=== PATIENT | male | born 2000 | race Two or more races ===

== ENCOUNTER 2025-08-06 18:04 | Inpatient (IN) | payer OTHER ==
[~2025-08-06] VITALS: Ht 180.3 cm; Wt 52.6 kg
[2025-08-06 19:38] LABS: COVID AG,FIA SOURCE NASAL SWAB
[2025-08-06 19:43] LABS: PLATELET COUNT (AUTO) 144 K/uL (150-450); RED BLOOD CELL COUNT(AUTO) 4.80 MIL/uL (4.50-5.90); RED CELL DISTRIBUTION WIDTH 12.9 % (11.5-14.5); WHITE BLOOD COUNT (AUTO) 6.1 K/uL (4.5-11.0)
[2025-08-06 19:57] LABS: CALCIUM, TOTAL 8.7 mg/dL (8.8-10.5); CREATININE 0.84 mg/dL (0.60-1.30); GLOMERULAR FILTR. RATE CALC > 60 mL/min (>60); GLUCOSE,RANDOM 84 mg/dL (70-110); SODIUM SERUM 142 mmol/L (136-145); UREA NITROGEN, BLOOD 6 mg/dL (7-18)
[2025-08-06 19:58] LABS: INFLUENZA TYPE A NEGATIVE FOR TYPE A (NEGATIVE); INFLUENZA TYPE B NEGATIVE FOR TYPE B (NEGATIVE)
[2025-08-06 19:59] LABS: SARS-COV2 (COVID) ANTIGEN,FIA Negative (Negative)
[2025-08-06] MEDS ORDERED: ZOLPIDEM TARTRATE 5 MG TABLET PO PRN (20:00)
[2025-08-06] MEDS ORDERED: MAGNESIUM HYDROXIDE SUSPENSION 30 ML UDCUP PO PRN (20:00)
[2025-08-06 20:01] LABS: ASPARTATE AMINOTRANSFERASE 41.0 U/L (15-37); TOTAL PROTEIN, SERUM 6.5 g/dL (6.4-8.2)
[2025-08-06 22:40] VITALS: BP 127/85; PULSE 51; RESP 20; TEMP 98.2; O2SAT 100
[2025-08-07] MEDS ORDERED: SODIUM CHLORIDE 3% 15 ML NEB SOLUTION NEB ONE (00:26)
[2025-08-07 05:11] VITALS: BP 108/66; PULSE 62; RESP 18; TEMP 97.5; O2SAT 100
[2025-08-07 08:00] VITALS: BP 106/75; PULSE 54; RESP 18; TEMP 97.7; O2SAT 100
[2025-08-07 19:30] VITALS: PULSE 68; RESP 18; O2SAT 100
[2025-08-07 20:51] VITALS: BP 112/64; PULSE 87; RESP 18; TEMP 98.1; O2SAT 100
[2025-08-07 23:47] LABS: MTB PCR w/Rif. Resistance-SPUT NOT DETECTED (Not Detectd)
[2025-08-08 03:29] VITALS: BP 111/63; PULSE 72; RESP 18; TEMP 97.3; O2SAT 100
[2025-08-08 04:36] VITALS: PULSE 64; RESP 16; O2SAT 100
[2025-08-08 08:50] VITALS: BP 114/75; PULSE 60; RESP 18; TEMP 97.5; O2SAT 100
[2025-08-08 09:09] LABS: MTB PCR w/Rif. Resistance-SPUT NOT DETECTED (Not Detectd)
[2025-08-08] MEDS: ISONIAZID 300 MG TABLET PO SCH (19:15)
[2025-08-08] MEDS: ETHAMBUTOL HCL 400 MG TABLET PO SCH (19:15)
[2025-08-08] MEDS: PYRIDOXINE HCL 50 MG TABLET PO SCH (19:15)
[2025-08-08 20:04] VITALS: BP 109/62; PULSE 61; RESP 18; TEMP 97.7; O2SAT 100
[2025-08-09 06:31] VITALS: BP 112/71; PULSE 73; RESP 18; TEMP 97.9; O2SAT 98
[2025-08-09 07:38] VITALS: BP 120/73; PULSE 57; RESP 18; TEMP 97.5; O2SAT 98
[2025-08-09 20:00] VITALS: BP 123/64; PULSE 64; RESP 18; TEMP 97.7; O2SAT 98
[2025-08-10 04:51] VITALS: BP 115/66; PULSE 63; RESP 18; TEMP 97.7; O2SAT 100
[2025-08-10 09:00] VITALS: BP 114/61; PULSE 60; RESP 19; TEMP 97.5; O2SAT 98
[2025-08-10 17:34] LABS: APPEARANCE,URINE HAZY (CLEAR); GLUCOSE, URINE (UA) NEGATIVE (NEGATIVE); LEUKOCYTE ESTERASE ,URINE NEGATIVE (NEGATIVE); NITRATE,URINE NEGATIVE (NEGATIVE); OCCULT BLOOD,URINE NEGATIVE (NEGATIVE); SPECIFIC GRAVITIY, URINE 1.013 (1.003-1.030)
[2025-08-10 21:21] VITALS: BP 112/61; PULSE 65; RESP 20; TEMP 98.2; O2SAT 99
[2025-08-11 04:45] VITALS: BP 96/67; PULSE 62; RESP 18; TEMP 97.9; O2SAT 99
[2025-08-11 08:00] VITALS: BP 114/77; PULSE 56; RESP 19; TEMP 97.3; O2SAT 100
[2025-08-11 19:26] VITALS: BP 114/62; PULSE 66; RESP 18; TEMP 97.9; O2SAT 98
[2025-08-11 20:07] LABS: QUANTIFERON+, Nil Value 0.05 IU/mL; QUANTIFERON+,Mitogen Value >10.00 IU/mL; QUANTIFERON+,TB1 Antigen Value 2.31 IU/mL; QUANTIFERON+,TB2 Antigen Value 2.37 IU/mL; QUANTIFERON, TB GOLD PLUS Positive (Negative)
[2025-08-12 04:28] VITALS: BP 120/71; PULSE 61; RESP 18; TEMP 98.1; O2SAT 99
[2025-08-12 09:11] VITALS: BP 117/69; PULSE 66; RESP 18; TEMP 98.2; O2SAT 99
[2025-08-12 20:00] VITALS: BP 119/65; PULSE 67; RESP 18; TEMP 98.1; O2SAT 99
[2025-08-13 04:00] VITALS: BP 123/73; PULSE 61; RESP 18; TEMP 98.4; O2SAT 97
[2025-08-13 08:37] VITALS: BP 116/66; PULSE 60; RESP 18; TEMP 98.2; O2SAT 100
[2025-08-13 12:30] LABS: PLATELET COUNT (AUTO) 201 K/uL (150-450); RED BLOOD CELL COUNT(AUTO) 5.23 MIL/uL (4.50-5.90); RED CELL DISTRIBUTION WIDTH 13.4 % (11.5-14.5); WHITE BLOOD COUNT (AUTO) 5.7 K/uL (4.5-11.0)
[2025-08-13 12:47] LABS: CALCIUM, TOTAL 8.7 mg/dL (8.8-10.5); CREATININE 0.66 mg/dL (0.60-1.30); GLOMERULAR FILTR. RATE CALC > 60 mL/min (>60); GLUCOSE,RANDOM 96 mg/dL (70-110); SODIUM SERUM 138 mmol/L (136-145); UREA NITROGEN, BLOOD 12 mg/dL (7-18)
[2025-08-13 12:51] LABS: ASPARTATE AMINOTRANSFERASE 73 U/L (15-37); TOTAL PROTEIN, SERUM 6.5 g/dL (6.4-8.2)
[2025-08-13] MEDS ORDERED: ETHA400T25 PO (14:42)
[2025-08-13] MEDS ORDERED: PYRI-9 PO (14:51)
[2025-08-13] MEDS ORDERED: ISON300T89 PO (14:51)
[2025-08-13] MEDS ORDERED: MAGN-169 PO (14:53)
[2025-08-13] MEDS ORDERED: ACET-2247 PO (14:53)
[2025-08-13] MEDS ORDERED: RIFA300C63 PO (14:54)
[2025-08-13 19:25] VITALS: BP 123/67; PULSE 83; RESP 18; TEMP 98.1; O2SAT 100
[2025-08-14 04:05] VITALS: BP 111/73; PULSE 64; RESP 18; TEMP 98.1; O2SAT 96
[2025-08-14 06:55] LABS: ASPARTATE AMINOTRANSFERASE 71 U/L (15-37); CALCIUM, TOTAL 8.6 mg/dL (8.8-10.5); CREATININE 0.59 mg/dL (0.60-1.30); GLOMERULAR FILTR. RATE CALC > 60 mL/min (>60); GLUCOSE,RANDOM 85 mg/dL (70-110); SODIUM SERUM 138 mmol/L (136-145); TOTAL PROTEIN, SERUM 6.2 g/dL (6.4-8.2); UREA NITROGEN, BLOOD 10 mg/dL (7-18)
[2025-08-14 07:49] VITALS: BP 114/64; PULSE 64; RESP 18; TEMP 97.9; O2SAT 100
[2025-08-14 20:40] VITALS: BP 117/63; PULSE 63; RESP 18; TEMP 98.2; O2SAT 100
[2025-08-15 06:25] LABS: PLATELET COUNT (AUTO) 189 K/uL (150-450); RED BLOOD CELL COUNT(AUTO) 4.94 MIL/uL (4.50-5.90); RED CELL DISTRIBUTION WIDTH 13.5 % (11.5-14.5); WHITE BLOOD COUNT (AUTO) 7.0 K/uL (4.5-11.0)
[2025-08-15 06:43] LABS: ASPARTATE AMINOTRANSFERASE 99 U/L (15-37); CALCIUM, TOTAL 8.5 mg/dL (8.8-10.5); CREATININE 0.65 mg/dL (0.60-1.30); GLOMERULAR FILTR. RATE CALC > 60 mL/min (>60); GLUCOSE,RANDOM 87 mg/dL (70-110); SODIUM SERUM 140 mmol/L (136-145); TOTAL PROTEIN, SERUM 6.1 g/dL (6.4-8.2); UREA NITROGEN, BLOOD 13 mg/dL (7-18)
[2025-08-15 08:07] VITALS: BP 118/68; PULSE 60; RESP 18; TEMP 97.9; O2SAT 99
[2025-08-15 19:56] VITALS: BP 117/78; PULSE 77; RESP 18; TEMP 97.5; O2SAT 98
[2025-08-16 05:55] VITALS: BP 104/62; PULSE 60; RESP 18; TEMP 97.7; O2SAT 99
[2025-08-16 07:01] LABS: PLATELET COUNT (AUTO) 186 K/uL (150-450); RED BLOOD CELL COUNT(AUTO) 4.83 MIL/uL (4.50-5.90); RED CELL DISTRIBUTION WIDTH 13.2 % (11.5-14.5); WHITE BLOOD COUNT (AUTO) 5.4 K/uL (4.5-11.0)
[2025-08-16 07:13] LABS: ASPARTATE AMINOTRANSFERASE 65 U/L (15-37); CALCIUM, TOTAL 8.8 mg/dL (8.8-10.5); CREATININE 0.61 mg/dL (0.60-1.30); GLOMERULAR FILTR. RATE CALC > 60 mL/min (>60); GLUCOSE,RANDOM 84 mg/dL (70-110); SODIUM SERUM 140 mmol/L (136-145); TOTAL PROTEIN, SERUM 6.1 g/dL (6.4-8.2); UREA NITROGEN, BLOOD 11 mg/dL (7-18)
[2025-08-16 07:33] LABS: ASPARTATE AMINOTRANSFERASE 63.0 U/L (15-37); TOTAL PROTEIN, SERUM 6.1 g/dL (6.4-8.2)
[2025-08-16 07:57] VITALS: BP 111/73; RESP 18; O2SAT 99
[2025-08-16 20:00] VITALS: BP 122/66; PULSE 65; RESP 18; TEMP 98.6; O2SAT 99
[2025-08-17 04:00] VITALS: BP 111/66; PULSE 61; RESP 16; TEMP 97.7; O2SAT 100
[2025-08-17 07:15] LABS: PLATELET COUNT (AUTO) 186 K/uL (150-450); RED BLOOD CELL COUNT(AUTO) 4.79 MIL/uL (4.50-5.90); RED CELL DISTRIBUTION WIDTH 13.2 % (11.5-14.5); WHITE BLOOD COUNT (AUTO) 6.5 K/uL (4.5-11.0)
[2025-08-17 07:26] LABS: ASPARTATE AMINOTRANSFERASE 57.0 U/L (15-37); TOTAL PROTEIN, SERUM 5.9 g/dL (6.4-8.2)
[2025-08-17 07:30] LABS: ASPARTATE AMINOTRANSFERASE 57 U/L (15-37); CALCIUM, TOTAL 8.3 mg/dL (8.8-10.5); CREATININE 0.56 mg/dL (0.60-1.30); GLOMERULAR FILTR. RATE CALC > 60 mL/min (>60); GLUCOSE,RANDOM 84 mg/dL (70-110); SODIUM SERUM 137 mmol/L (136-145); TOTAL PROTEIN, SERUM 5.8 g/dL (6.4-8.2); UREA NITROGEN, BLOOD 11 mg/dL (7-18)
[2025-08-17 08:01] VITALS: BP 109/68; PULSE 56; RESP 18; TEMP 97.7; O2SAT 100
[2025-08-17 16:47] VITALS: BP 111/69; PULSE 65; RESP 18; O2SAT 18
[2025-08-17 19:11] VITALS: BP 110/63; PULSE 63; RESP 19; TEMP 98.1; O2SAT 100
[2025-08-18 03:42] VITALS: BP 105/61; PULSE 53; RESP 18; TEMP 97.5; O2SAT 97
[2025-08-18 06:51] LABS: PLATELET COUNT (AUTO) 190 K/uL (150-450); RED BLOOD CELL COUNT(AUTO) 4.66 MIL/uL (4.50-5.90); RED CELL DISTRIBUTION WIDTH 13.4 % (11.5-14.5); WHITE BLOOD COUNT (AUTO) 7.0 K/uL (4.5-11.0)
[2025-08-18 07:20] LABS: ASPARTATE AMINOTRANSFERASE 107 U/L (15-37); CALCIUM, TOTAL 8.6 mg/dL (8.8-10.5); CREATININE 0.67 mg/dL (0.60-1.30); GLOMERULAR FILTR. RATE CALC > 60 mL/min (>60); GLUCOSE,RANDOM 77 mg/dL (70-110); SODIUM SERUM 138 mmol/L (136-145); TOTAL PROTEIN, SERUM 5.9 g/dL (6.4-8.2); UREA NITROGEN, BLOOD 11 mg/dL (7-18)
[2025-08-18 08:00] VITALS: BP 100/59; PULSE 55; RESP 20; TEMP 97.5; O2SAT 100
[2025-08-18 16:20] VITALS: BP 120/65; PULSE 64; RESP 18; TEMP 97.5; O2SAT 100
[2025-08-18 20:00] VITALS: BP 117/61; PULSE 65; RESP 18; TEMP 98.4; O2SAT 99
[2025-08-18] MEDS: ACETAMINOPHEN 325 MG TABLET PO PRN (22:14)
[2025-08-19 04:00] VITALS: BP 105/66; PULSE 60; RESP 16; TEMP 97.5; O2SAT 98
[2025-08-19 07:04] LABS: PLATELET COUNT (AUTO) 202 K/uL (150-450); RED BLOOD CELL COUNT(AUTO) 4.83 MIL/uL (4.50-5.90); RED CELL DISTRIBUTION WIDTH 13.6 % (11.5-14.5); WHITE BLOOD COUNT (AUTO) 6.6 K/uL (4.5-11.0)
[2025-08-19 07:18] LABS: ASPARTATE AMINOTRANSFERASE 86 U/L (15-37); CALCIUM, TOTAL 8.4 mg/dL (8.8-10.5); CREATININE 0.72 mg/dL (0.60-1.30); GLOMERULAR FILTR. RATE CALC > 60 mL/min (>60); GLUCOSE,RANDOM 81 mg/dL (70-110); SODIUM SERUM 139 mmol/L (136-145); TOTAL PROTEIN, SERUM 5.9 g/dL (6.4-8.2); UREA NITROGEN, BLOOD 12 mg/dL (7-18)
[2025-08-19 08:20] VITALS: BP 104/64; PULSE 52; RESP 18; TEMP 97.9; O2SAT 98
[2025-08-19 08:20] LABS: ASPARTATE AMINOTRANSFERASE 86.0 U/L (15-37); TOTAL PROTEIN, SERUM 6.0 g/dL (6.4-8.2)
[2025-08-19 20:21] VITALS: BP 106/67; PULSE 68; RESP 18; TEMP 98.1; O2SAT 100
[2025-08-20 04:16] VITALS: BP 109/64; PULSE 60; RESP 18; TEMP 97.5; O2SAT 100
[2025-08-20 07:01] LABS: ASPARTATE AMINOTRANSFERASE 56 U/L (15-37); CALCIUM, TOTAL 8.5 mg/dL (8.8-10.5); CREATININE 0.62 mg/dL (0.60-1.30); GLOMERULAR FILTR. RATE CALC > 60 mL/min (>60); GLUCOSE,RANDOM 76 mg/dL (70-110); SODIUM SERUM 140 mmol/L (136-145); TOTAL PROTEIN, SERUM 6.1 g/dL (6.4-8.2); UREA NITROGEN, BLOOD 13 mg/dL (7-18)
[2025-08-20 07:06] LABS: PLATELET COUNT (AUTO) 196 K/uL (150-450); RED BLOOD CELL COUNT(AUTO) 4.79 MIL/uL (4.50-5.90); RED CELL DISTRIBUTION WIDTH 13.7 % (11.5-14.5); WHITE BLOOD COUNT (AUTO) 8.1 K/uL (4.5-11.0)
[2025-08-20 08:14] VITALS: BP 100/59; PULSE 57; RESP 18; TEMP 97.7; O2SAT 100
[2025-08-20 20:00] VITALS: BP 112/71; PULSE 55; RESP 18; TEMP 98.1; O2SAT 100
[2025-08-21 04:00] VITALS: BP 98/68; PULSE 54; RESP 16; TEMP 97.7; O2SAT 100
[2025-08-21 06:58] LABS: PLATELET COUNT (AUTO) 196 K/uL (150-450); RED BLOOD CELL COUNT(AUTO) 4.78 MIL/uL (4.50-5.90); RED CELL DISTRIBUTION WIDTH 13.7 % (11.5-14.5); WHITE BLOOD COUNT (AUTO) 6.8 K/uL (4.5-11.0)
[2025-08-21 09:04] VITALS: BP 105/64; PULSE 53; RESP 18; TEMP 97.7; O2SAT 100
[2025-08-21 13:49] LABS: ASPARTATE AMINOTRANSFERASE 59 U/L (15-37); CALCIUM, TOTAL 8.5 mg/dL (8.8-10.5); CREATININE 0.66 mg/dL (0.60-1.30); GLOMERULAR FILTR. RATE CALC > 60 mL/min (>60); GLUCOSE,RANDOM 76 mg/dL (70-110); SODIUM SERUM 141 mmol/L (136-145); TOTAL PROTEIN, SERUM 6.0 g/dL (6.4-8.2); UREA NITROGEN, BLOOD 15 mg/dL (7-18)
[2025-08-21 15:10] LABS: ASPARTATE AMINOTRANSFERASE 59.0 U/L (15-37); TOTAL PROTEIN, SERUM 6.1 g/dL (6.4-8.2)
[2025-08-21 20:00] VITALS: BP 107/70; PULSE 61; RESP 17; TEMP 97.5; O2SAT 100
[2025-08-22 06:28] VITALS: BP 99/63; PULSE 56; RESP 16; TEMP 97.7; O2SAT 100
[2025-08-22 07:48] VITALS: BP 96/63; PULSE 62; RESP 20; TEMP 97.5; O2SAT 100
[2025-08-22 09:10] LABS: ASPARTATE AMINOTRANSFERASE 50.0 U/L (15-37); TOTAL PROTEIN, SERUM 6.3 g/dL (6.4-8.2)
[2025-08-22 20:04] VITALS: BP 102/67; PULSE 55; RESP 17; TEMP 98.6; O2SAT 100
[2025-08-23 04:04] VITALS: BP 95/70; PULSE 68; RESP 17; TEMP 97.8; O2SAT 100
[2025-08-23 08:02] VITALS: BP 106/64; PULSE 56; RESP 18; TEMP 98.1; O2SAT 100
[2025-08-23 20:20] VITALS: BP 106/59; PULSE 59; RESP 18; TEMP 98.1; O2SAT 97
[2025-08-24 06:14] VITALS: BP 101/70; PULSE 52; RESP 20; TEMP 97.5; O2SAT 100
[2025-08-24 08:39] VITALS: BP 103/72; PULSE 63; RESP 18; TEMP 97.7; O2SAT 100
[2025-08-24 20:02] VITALS: BP 96/67; PULSE 67; RESP 17; TEMP 98.4; O2SAT 98
[2025-08-25 04:11] VITALS: BP 120/71; PULSE 57; RESP 18; TEMP 97.7; O2SAT 100
[2025-08-25 09:13] VITALS: BP 110/72; PULSE 70; RESP 18; TEMP 97.3; O2SAT 99
[2025-08-25 16:03] LABS: PLATELET COUNT (AUTO) 182 K/uL (150-450); RED BLOOD CELL COUNT(AUTO) 4.98 MIL/uL (4.50-5.90); RED CELL DISTRIBUTION WIDTH 14.1 % (11.5-14.5); WHITE BLOOD COUNT (AUTO) 7.8 K/uL (4.5-11.0)
[2025-08-25 16:13] LABS: CALCIUM, TOTAL 8.7 mg/dL (8.8-10.5); CREATININE 0.89 mg/dL (0.60-1.30); GLOMERULAR FILTR. RATE CALC > 60 mL/min (>60); GLUCOSE,RANDOM 89 mg/dL (70-110); SODIUM SERUM 140 mmol/L (136-145); UREA NITROGEN, BLOOD 16 mg/dL (7-18)
[2025-08-25 16:19] LABS: ASPARTATE AMINOTRANSFERASE 70 U/L (15-37); TOTAL PROTEIN, SERUM 6.6 g/dL (6.4-8.2)
[2025-08-25 19:51] VITALS: BP 106/60; PULSE 65; RESP 18; TEMP 98.1; O2SAT 98
[2025-08-26 04:30] VITALS: BP 105/62; PULSE 60; RESP 18; TEMP 97.7; O2SAT 97
[2025-08-26 07:07] LABS: HEPATITIS B CORE IGM Negative (Negative)
[2025-08-26 08:10] VITALS: BP 103/63; PULSE 51; RESP 18; TEMP 97.7; O2SAT 100
[2025-08-26 19:11] VITALS: BP 112/66; PULSE 62; RESP 18; TEMP 98.6; O2SAT 100
[2025-08-27 04:29] VITALS: BP 102/59; PULSE 57; RESP 18; TEMP 97.5; O2SAT 96
[2025-08-27 08:23] VITALS: BP 104/63; PULSE 57; RESP 18; TEMP 98.1; O2SAT 100
[2025-08-27 20:00] VITALS: BP_SYST 102; BP_SYST 106; BP_DIAS 63; BP_DIAS 70; PULSE 67; RESP 18; TEMP 97.3; O2SAT 99
[2025-08-28 01:07] LABS: HEPATITIS C AB (EIA) Non Reactive (Non Reactive)
[2025-08-28 08:25] VITALS: BP 97/63; PULSE 56; RESP 18; TEMP 97.2; O2SAT 100
[2025-08-28 14:35] LABS: CALCIUM, TOTAL 8.6 mg/dL (8.8-10.5); CREATININE 0.97 mg/dL (0.60-1.30); GLOMERULAR FILTR. RATE CALC > 60 mL/min (>60); GLUCOSE,RANDOM 77 mg/dL (70-110); SODIUM SERUM 143 mmol/L (136-145); UREA NITROGEN, BLOOD 16 mg/dL (7-18)
[2025-08-28 14:42] LABS: ASPARTATE AMINOTRANSFERASE 49 U/L (15-37); TOTAL PROTEIN, SERUM 6.7 g/dL (6.4-8.2)
[2025-08-28 20:00] VITALS: BP 111/59; PULSE 58; RESP 18; TEMP 98.1; O2SAT 99
[2025-08-28 21:02] LABS: ASPARTATE AMINOTRANSFERASE 44 U/L (15-37); CALCIUM, TOTAL 8.5 mg/dL (8.8-10.5); CREATININE 0.83 mg/dL (0.60-1.30); GLOMERULAR FILTR. RATE CALC > 60 mL/min (>60); GLUCOSE,RANDOM 84 mg/dL (70-110); SODIUM SERUM 142 mmol/L (136-145); TOTAL PROTEIN, SERUM 6.4 g/dL (6.4-8.2); UREA NITROGEN, BLOOD 19 mg/dL (7-18)
[2025-08-29 05:39] VITALS: BP 102/71; PULSE 56; RESP 18; TEMP 97.5; O2SAT 100
[2025-08-29 07:52] VITALS: BP 110/69; PULSE 59; RESP 18; TEMP 98.2; O2SAT 100
[2025-08-29 12:03] LABS: ASPARTATE AMINOTRANSFERASE 37 U/L (15-37); CALCIUM, TOTAL 8.5 mg/dL (8.8-10.5); CREATININE 0.58 mg/dL (0.60-1.30); GLOMERULAR FILTR. RATE CALC > 60 mL/min (>60); GLUCOSE,RANDOM 88 mg/dL (70-110); SODIUM SERUM 140 mmol/L (136-145); TOTAL PROTEIN, SERUM 6.7 g/dL (6.4-8.2); UREA NITROGEN, BLOOD 15 mg/dL (7-18)
[2025-08-29 19:53] VITALS: BP 114/70; PULSE 64; RESP 18; TEMP 98.2; O2SAT 100
[2025-08-30 04:00] VITALS: BP 105/75; PULSE 63; RESP 18; TEMP 98.2; O2SAT 100
[2025-08-30 07:55] VITALS: BP 105/64; PULSE 54; RESP 18; TEMP 98.1; O2SAT 100
[2025-08-30 20:33] VITALS: BP 120/80; PULSE 64; RESP 18; TEMP 98.2; O2SAT 99
[2025-08-31 04:09] VITALS: BP 100/64; PULSE 56; RESP 17; TEMP 97.7; O2SAT 98
[2025-08-31 08:40] VITALS: BP 109/68; PULSE 53; RESP 18; TEMP 97.5; O2SAT 100
[2025-08-31 19:48] VITALS: BP 108/56; PULSE 58; RESP 17; TEMP 98.2; O2SAT 100
[2025-09-01 09:11] VITALS: BP 129/82; PULSE 55; RESP 18; TEMP 97.7; O2SAT 100
[2025-09-01 20:05] VITALS: BP 117/73; PULSE 73; RESP 17; TEMP 98.6; O2SAT 100
[2025-09-02 04:47] VITALS: BP 109/65; PULSE 56; RESP 18; TEMP 97.7; O2SAT 100
[2025-09-02 07:02] LABS: ASPARTATE AMINOTRANSFERASE 29 U/L (15-37); CALCIUM, TOTAL 8.8 mg/dL (8.8-10.5); CREATININE 0.74 mg/dL (0.60-1.30); GLOMERULAR FILTR. RATE CALC > 60 mL/min (>60); GLUCOSE,RANDOM 89 mg/dL (70-110); SODIUM SERUM 141 mmol/L (136-145); TOTAL PROTEIN, SERUM 6.5 g/dL (6.4-8.2); UREA NITROGEN, BLOOD 16 mg/dL (7-18)
[2025-09-02 08:00] VITALS: BP 114/74; PULSE 58; RESP 19; TEMP 97.5; O2SAT 99
[2025-09-02 20:04] VITALS: BP 116/69; PULSE 71; RESP 18; TEMP 98.1; O2SAT 100
[2025-09-03 04:00] VITALS: BP 110/59; PULSE 66; RESP 18; TEMP 97.9; O2SAT 99
[2025-09-03 09:11] VITALS: BP 112/73; PULSE 60; RESP 18; TEMP 98; O2SAT 100
[2025-09-03 20:00] VITALS: BP 148/97; PULSE 117; RESP 18; TEMP 98.7; O2SAT 97
[2025-09-04 04:00] VITALS: BP 126/82; PULSE 80; RESP 18; TEMP 98.6; O2SAT 99
[2025-09-04 08:41] VITALS: BP 137/89; PULSE 91; RESP 18; TEMP 98.3; O2SAT 100
== END 2025-09-04 21:00 | disposition left against medical advice (07) | DRG 179 ==
LOC: EMS 18:04 → EDH 19:48 → 6N 22:43
PROVIDERS: ADMIT Internal Medicine; ATTEND Internal Medicine
DX: A15.9 Respiratory tuberculosis unspecified (principal); D69.6 Thrombocytopenia, unspecified; R74.01 Elevation of levels of liver transaminase levels; R74.8 Abnormal levels of other serum enzymes; Z87.891 Personal history of nicotine dependence; Z20.822 Contact with and (suspected) exposure to COVID-19
CPT/HCPCS: 71045; 76700; 80048; 80053; 80074; 80076; 81003; 82248; 85025; 86480; 87015; 87081; 87206; 87389; 87556; 87804; 94640; 99285; 36415-L1; 36415-TC